=== PATIENT | male | born 1975 | race Caucasian/White ===

== ENCOUNTER → 2018-07-11 | Outpatient (CLI) | payer MEDICAID ==
[~2018-07-11] MED LIST: GADOBUTROL 10 ML VIAL IVP ONE; GLUCAGON HCL 0.3 MG in SYRINGE 0.3 ML IVP ONE
== END ==
LOC: FIMAGING 11:52
PROVIDERS: ATTEND Physician Assistant
DX: K50.80 Crohn's disease of both small and large intestine without complications (principal)
CPT/HCPCS: A9585; J1610